=== PATIENT | male | born 1970 | race Caucasian/White ===

== ENCOUNTER 2019-12-19 13:48 | Emergency (ER) | payer BC, SELFPAY ==
[2019-12-19 13:55] VITALS: BP 140/87; PULSE 114; RESP 18; TEMP 36.6; O2SAT 96; BMI 35.2
[2019-12-19 14:03] VITALS: O2SAT 96
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
--- NOTE | 2019-12-19 14:26 | XR_ITS ---
WS: [id number] XR cervical spine 3V* [id number] REASON FOR EXAM: trauma FINDINGS: Cervical spine series 5 views show normal disc spaces and vertebral vertebral bodies. The odontoid process is normal the space at the odontoid is slightly asymmetrical a ligamentous fract ure cannot be excluded. Cervical thoracic junction shows no displacement. The joints of Luschka are normal. No cervical rib fractures are seen. XR/XR cervical spine 3V* [id number] IMPRESSION: Mild widening of the left side of the odontoid space consideration of CT to rul e out definite injury in this area particularly with those changes in the facia l area
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
--- NOTE | 2019-12-19 14:58 | XR_ITS ---
WS: [id number] XR wrist RT min 3V* [id number] REASON FOR EXAM: trauma FINDINGS: Right wrist 4 views. The ulna and radius are normal. Normal alignment is noted. The carpal bones show no fractures. XR/XR wrist RT min 3V* [id number] IMPRESSION: The right wrist shows no definite fractures. Findings please note the projectio ns were labeled left wrist.
[2019-12-19 15:03] LABS: Basophils % 0.3 %; Eosinophils # 0.1 10^3/uL (0.0-0.8); Eosinophils % 0.4 %; Hematocrit 46.9 % (42.0-52.0); Hemoglobin 15.5 g/dL (11.7-16.6); Lymphocytes # 1.2 10^3/uL (0.8-4.8); Lymphocytes % 10.5 %; Mean Corpuscular Hemoglobin 29.2 pg (28.0-34.0); Mean Corpuscular Volume 88.5 fL (80-94); Mean Platelet Volume 9.2 fL (7.4-10.4); Monocytes # 0.6 10^3/uL (0.2-0.9); Monocytes % 5.4 %; Neutrophils # 9.6 10^3/uL (1.8-7.7); Neutrophils % 82.9 %; Nucleated Red Blood Cells % 0 %; Platelet Count 223 10^3/cmm (130-400); Red Cell Distribution Width 12.2 % (12.1-15.1); White Blood Count 11.6 10^3/uL (4.0-10.0)
[2019-12-19 15:07] LABS: Add Urine Microscopic? NO
[2019-12-19 15:13] LABS: Bilirubin Urine Neg (NEGATIVE); Blood Urine Neg (Negative); Glucose Urine UA 4+ (Normal); Ketones Urine Negative (Negative); Leukocyte Esterase Urine Negative (Negative); Nitrate Urine Negative (Negative); Protein Urine Neg (Negative); Urine Appearance Clear (CLEAR); Urine Color Yellow (Yellow); Urobilinogen Urine Norm (Negative); pH Urine 5 (5-7)
[2019-12-19 15:18] LABS: Alanine Aminotransferase 23 U/L (0-41); Albumin Level 5.1 g/dL (3.5-5.2); Alkaline Phosphatase 65 IU/L (40-130); Anion Gap 20.4 (5-19); Aspartate Amino Transferase 16 U/L (0-40); Blood Urea Nitrogen 19 mg/dL (6-20); Calcium 10.1 mg/dL (8.5-10.5); Carbon Dioxide 18 mmol/L (22-29); Chloride 101 mmol/L (98-107); Globulin 2.1 g/dL (1.3-4.6); Glomerular Filtration Rate 103.6 mL/min (90-130); Glucose 349 mg/dL (65-115); Osmolality Calculated 290 mOsm/kg (285-295); Potassium 4.4 mmol/L (3.5-5.1); Sodium 135 mmol/L (136-145); Total Bilirubin 0.7 mg/dL (0.15-1.2); Total Protein 7.2 g/dL (6.6-8.7)
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
[2019-12-19] MEDS: ceFAZolin 1,000 MG in sodium chloride 0.9% (plus) 50 ML 100 MG IV (15:35)
[2019-12-19] MEDS: ketorolac 30 mg/mL INJ IVP (15:35)
[2019-12-19] MEDS: sodium chloride 0.9% 1,000 ML 999 ML IV (15:36)
[2019-12-19 15:39] VITALS: BP 145/85; PULSE 111; O2SAT 96
--- NOTE | 2019-12-19 15:44 | PC.NURSE ---
pt transported to CT scan wheelchair with tech
[2019-12-19 17:39] VITALS: BP 152/91; PULSE 102; O2SAT 95
[2019-12-19 18:08] VITALS: BP 137/93; PULSE 107; O2SAT 96
== END 2019-12-19 18:57 ==
PROVIDERS: Emergency Provider Family Medicine
DX: S02.401A Maxillary fracture, unspecified side, initial encounter for closed fracture (principal); S01.511A Laceration without foreign body of lip, initial encounter; E11.9 Type 2 diabetes mellitus without complications; E78.5 Hyperlipidemia, unspecified; I10 Essential (primary) hypertension; S02.5XXA Fracture of tooth (traumatic), initial encounter for closed fracture
CPT/HCPCS: 12345; 70450; 70486; 72040; 72125; 73110; 80053; 81003; 85025; 96365; 96367; 96375; 99283; 99285; J0690; J1885; J7030